=== PATIENT | male | born 1975 | race Caucasian/White ===

== ENCOUNTER 2016-10-24 16:33 | Emergency (ER) | payer MEDICAID ==
--- NOTE | 2016-10-24 17:23 | ED Physician Chart ---
Chief Complaint/HPI - Patient Information Date Seen:: 10/24/16 Time Seen:: 17:17 Chief Complaint:: finger injury History of Present Illness:: pt injured his rt 3nd finger with a hot glue gun yesterday, says its hurts and taking a long time to heal. he wants some ointment. he also wants pain med. ..he admits he has norco at home from knee sx last yr. no red streaks. no fever. no sob. no cp. can move finger ok. Allergies:: Allergies Allergy/AdvReac Type Severity Reaction Status Date / Time Penicillins [PCN] Allergy Verified 10/24/16 16:51 Vitals:: Vital Signs - 8 hr 10/24/16 16:52 Temp 97.2 F HR 59 RR 16 BP 111/73 O2 Sat % 96 Historian:: Patient Review of Systems - Review of Systems General/Constitutional: No fever, No chills, No weight loss, No weakness, No diaphoresis, No edema, No loss of appetite Skin: No skin lesions, No rash, No bruising Head: No headache, No light-headedness Eyes: No loss of vision, No pain, No diplopia ENT: No earache, No nasal drainage, No sore throat, No tinnitus Neck: No neck pain, No swelling, No thyromegaly, No stiffness, No mass noted Cardio Vascular: No chest pain, No palpitations, No PND, No orthopnea, No edema Pulmonary: No SOB, No cough, No sputum, No wheezing GI: No nausea, No vomiting, No diarrhea, No pain, No melena, No hematochezia, No constipation, No hematemesis G/U: No dysuria, No frequency, No hematuria Musculoskeletal: Bone or joint pain, No back pain, No muscle pain Endocrine: No polyuria, No polydipsia Psychiatric: No prior psych history, No depression, No anxiety, No suicidal ideation Hematopoietic: No bruising, No lymphadenopathy Allergic/Immuno: No urticaria, No angioedema Neurological: No syncope, No focal symptoms, No weakness, No paresthesia, No headache, No seizure, No dizziness, No confusion, No vertigo Past Medical History - Past Medical History Past Medical History: No significant medical hx Social History: Non Smoker Medication: Reviewed Family Medical History - Family Member Mother History Unknown: Yes Physical Exam - Physical Examination General/Constitutional: Awake, Well-developed, well-nourished, Alert, No distress, GCS 15, Non-toxic appearing, Ambulatory Head: Atraumatic Eyes: Lids, conjuctiva normal, PERRL, EOMI Skin: Nl inspection, No rash, No skin lesions, No ecchymosis, Well hydrated, No lymphadenopathy ENMT: External ears, nose nl, Nasal exam nl, Lips, teeth, gums nl Neck: Nontender, Full ROM w/o pain, No JVD, No nuchal rigidity, No bruit, No mass, No stridor Respiratory: Nl effort/Exclusion, Clear to Auscultation, No Wheeze/Rhonchi/Rales Cardio Vascular: RRR, No murmur, gallop, rubs, NL S1 S2 GI: No tenderness/rebounding/guarding, No organomegaly, No hernia, Normal BS's, Nondistended, No mass/bruits, No McBurney tenderness : No CVA tenderness Extremities: No tenderness or effusion, Full ROM, normal strength in all extremities, No edema, Normal digits & nails Other Extremities comments:: rt 3rd finger has a 3 cm wound w healing by 2nd intention well underway. the wound is gaping as much as 1/2 cm width at poits. it is over the dorsum of finger. there is no open /exposed tendon. the wound has had time to appear dry on the surface (seems much older than 2 days) pt has ok cap refill and ok sensation at tip. he can flex/ext finger ok. Neuro/Psych: Alert/oriented, DTR's symmetric, Normal sensory exam, Normal motor strength, Judgement/insight normal, Mood normal, Normal gait, No focal deficits Misc: normal gait, Normal back, No paraspinal tenderness ED Septic Shock - . Is Septic Shock (SBP<90, OR Lactate>4 mmol\L) present?: No - <6hrs of presentation: Vital Signs: Vital Signs - 8 hr 10/24/16 16:52 Temp 97.2 F HR 59 RR 16 BP 111/73 O2 Sat % 96 Reassessment (Disposition) - Reassessment Reassessment:: splint/dressing and bacitracin to wound/finger. rx ultracet 10, bactroban ointment. see pmd in 2 d. Reassessment Condition:: Unchanged - Diagnosis Diagnosis:: burn rt 3nd finger - Aftercare/Follow up Instructions Aftercare/Follow-Up Instructions:: Counseled pt regarding lab results/diagnosis & need follow up - Patient Disposition Discharge/Transfer:: Home Condition at Disposition:: Improved
[2016-10-24] MEDS ORDERED: Bacitracin pkt 1 gm Pkt TP ONE (17:31)
== END 2016-10-24 17:25 | disposition home or self-care (01) ==
LOC: ER 16:33
DX: T23.021A Burn of unspecified degree of single right finger (nail) except thumb, initial encounter (principal); Z88.0 Allergy status to penicillin; X08.8XXA Exposure to other specified smoke, fire and flames, initial encounter; Y93.89 Activity, other specified; Y92.89 Other specified places as the place of occurrence of the external cause; Y99.8 Other external cause status
CPT/HCPCS: Z7502; Z7610

== ENCOUNTER 2018-08-19 19:49 | Emergency (ER) | payer MEDICAID, OTHER ==
--- NOTE | 2018-08-19 20:41 | ED Physician Chart ---
ED Chief Complaint/HPI - Patient Information Date Seen:: 08/19/18 Time Seen:: 20:41 Chief Complaint:: Left first toe laceration History of Present Illness:: 42 yo male suffered a laceration to his left first toe by a metal plate when he was walking bare footed on the kitchen floor at home around 3pm today. There was significant bleeding. Patient washed the wound with hydrogen peroxide and water, and wrapped with bandages. Patient took some "street drug" to control the pain. Patient refused to reveal the name of the drug. Patient presented to ER and the bleeding had stopped. Allergies:: Allergies Allergy/AdvReac Type Severity Reaction Status Date / Time No Known Allergies Allergy Verified 08/19/18 20:10 Vitals:: Vital Signs - 8 hr 08/19/18 20:00 Temp 99.1 F HR 97 RR 19 BP 139/93 O2 Sat % 95 ED Review of Systems - Review of Systems General/Constitutional: No fever Skin: Skin lesions Head: No headache Eyes: No pain ENT: No nasal drainage Neck: No neck pain Cardio Vascular: No chest pain Pulmonary: No SOB GI: No nausea, No vomiting Musculoskeletal: No bone or joint pain Psychiatric: No prior psych history Neurological: No focal symptoms ED Past Medical History - Past Medical History Past Medical History: No significant medical hx Social History: Smoker, No Alcohol, Illicit Drug Use Surgical History: other (Bilateral forearm ORIF) Family Medical History - Family Member Mother History Unknown: Yes ED Physical Exam - Physical Examination General/Constitutional: Awake, Alert Head: Atraumatic Eyes: PERRL, EOMI ENMT: Nasal exam nl Neck: No nuchal rigidity Respiratory: Clear to Auscultation Cardio Vascular: RRR, No murmur, gallop, rubs, NL S1 S2 GI: No tenderness/rebounding/guarding Other Extremities comments:: Left first toe plantar side, there is a 1 cm irregular laceration without bleeding Neuro/Psych: No focal deficits ED Assessment - Assessment General Assessment: Left first toe laceration Assessment/Comments:: TDap IM - Procedures Procedures:: Cleaned the laceration with bedadine and wrapped with gauze. Pt tolerated well. Informed Consent: Procedure/risk/benefits explained by MD: Yes ED Septic Shock - . Is Septic Shock (SBP<90, OR Lactate>4 mmol\\L) present?: No - <6hrs of presentation: Vital Signs: Vital Signs - 8 hr 08/19/18 20:00 Temp 99.1 F HR 97 RR 19 BP 139/93 O2 Sat % 95 ED Reassessment (Disposition) - Reassessment Reassessment:: Follow up PCP or return to ER if the wound become red, warm, swollen and painful. Reassessment Condition:: Improved - Aftercare/Follow up Instructions Medication Prescribed:: Keflex 500mg po bid x 5 days - Patient Disposition Discharge/Transfer:: Home
== END 2018-08-19 21:11 | disposition home or self-care (01) ==
LOC: ER 19:49
DX: S91.112A Laceration without foreign body of left great toe without damage to nail, initial encounter (principal); F17.200 Nicotine dependence, unspecified, uncomplicated; W26.8XXA Contact with other sharp object(s), not elsewhere classified, initial encounter; Y93.01 Activity, walking, marching and hiking; Y92.000 Kitchen of unspecified non-institutional (private) residence as the place of occurrence of the external cause; Y99.8 Other external cause status
CPT/HCPCS: Z7502; Z7610